=== PATIENT | male | born 1985 | race Caucasian/White ===

== ENCOUNTER 2016-09-03 08:30 | Emergency (ER) | payer MEDICARE | END 2016-09-03 09:40 | disposition home or self-care (01) | LOC: ER 08:30 | DX: S61.212A Laceration without foreign body of right middle finger without damage to nail, initial encounter (principal); W22.8XXA Striking against or struck by other objects, initial encounter; Z23 Encounter for immunization; F17.210 Nicotine dependence, cigarettes, uncomplicated; G43.909 Migraine, unspecified, not intractable, without status migrainosus | CPT/HCPCS: 90471 ==

== ENCOUNTER 2016-09-16 14:48 | Emergency (ER) | payer MEDICARE | END 2016-09-16 17:12 | disposition home or self-care (01) | LOC: ER 14:48 | DX: G43.909 Migraine, unspecified, not intractable, without status migrainosus (principal); J01.90 Acute sinusitis, unspecified; F17.210 Nicotine dependence, cigarettes, uncomplicated | CPT/HCPCS: 96372; J1885 ==

== ENCOUNTER 2016-11-06 20:56 | Emergency (ER) | payer SELFPAY | END 2016-11-07 00:28 | disposition home or self-care (01) | LOC: ER 20:56 | DX: S33.5XXA Sprain of ligaments of lumbar spine, initial encounter (principal); G43.909 Migraine, unspecified, not intractable, without status migrainosus; F17.210 Nicotine dependence, cigarettes, uncomplicated; V00.131A Fall from skateboard, initial encounter; Y92.69 Other specified industrial and construction area as the place of occurrence of the external cause | CPT/HCPCS: 96374 ==